=== PATIENT | female | born 1990 | race Caucasian/White ===

== ENCOUNTER 2018-05-10 13:01 | Inpatient (IN) | payer BC ==
[~2018-05-10 13:01] MED LIST: Bupivacaine/Epinephrine 0.25% 30 ML VIAL ONE
[2018-05-10 14:41] VITALS: BMI 30.4
[2018-05-10 14:45] LABS: Amnisure Internal Control QC ACCEPTABLE (ACCEPTABLE); Amnisure Test RUPTURE DETECTED (No Rupture)
--- NOTE | 2018-05-10 15:03 | PDOC.LDHP ---
Labor and Delivery H&P Chief complaint: loss of fluid HPI: Patient of Dr Adams, here for SROM at 1300 Patient is a 27 yo at 38 weeks by EDC here for SROM at 1300 and CTX. Last delivery was 18mos ago and had PIH then. No SXS of MARTÍNEZ, or visual changes, no RUQ pain. Review of Systems: Complete ROS performed and as per HPI Current gestational age (weeks): 38 Due date: 05/23/18 Dating criteria: last menstrual period Grav: 2 Para: 1 OB History Details: X 1 Current complications: none Abnormal US findings: No Current medications: pre-torin vitamins Previous surgical history: none Allergies/Adverse Reactions: Allergies Allergy/AdvReac Type Severity Reaction Status Date / Time No Known Drug Allergies Allergy Verified 05/10/18 14:41 - Physical Exam Abnormal vital signs: 140/90s X 2 General: NAD Heart: RRR Lungs: CTAB Abdomen: gravid Extremeties: no edema FHT: category 1 Cody contractions every: Every 5 minutes - Vaginal Exam cm dilated: 3 Effacement: 75% Station: -1 - Assessment Early labor at term, GBS pos...admit. Dr adams currently out. - Plan Plan: admit to L&D, labor augmentation if indicated, GBS antibiotic prophylaxis , informed consent obtained, anesthesia consult for pain management (Last delivery, she required atropine for "code green" after epidural placement. May have been inadverent intrascculare injection vs other)
[2018-05-10] MEDS ORDERED: Lidocaine 1% (PF) 30 ML VIAL SC PRN (15:07)
[2018-05-10] MEDS ORDERED: Ibuprofen 800 MG TAB PO PRN (15:07)
[2018-05-10] MEDS ORDERED: NS / Oxytocin 40 units/1000ml 1,000 ML IV PRN (15:07)
[2018-05-10] MEDS ORDERED: Butorphanol Tartrate 1 MG/ML VIAL SLOW IVP PRN (15:07)
[2018-05-10] MEDS ORDERED: Promethazine HCl 25 MG/ML VIAL IM PRN (15:07)
[2018-05-10] MEDS ORDERED: HYDROcodone/Acetaminophen 5/325 mg Tablet PO PRN ×2 (15:07)
[2018-05-10] MEDS ORDERED: Ondansetron HCl/PF 4 MG/2 ML Vial IVP PRN (15:07)
[2018-05-10] MEDS ORDERED: Penicillin G Potassium 5 MILL.UNITS in Sodium Chloride 0.9% 100 ML IVPB SCH (15:15)
[2018-05-10] MEDS: Lactated Ringer's 1,000 ML IV SCH (15:30)
[2018-05-10] MEDS ORDERED: Bupivacaine 0.5% 20 ML, fentaNYL Citrate/PF 400 MCG in Sodium Chloride 0.9% 72 ML EPIDURAL SCH (15:45)
[2018-05-10] MEDS ORDERED: DISCONTINUE ALL PREVIOUS NARCOTICS FS SCH (15:45)
[2018-05-10 15:56] LABS: Hemoglobin 12.3 g/dL (12.0-16.0); Mean Corpuscular HGB CONC 33.1 g/dL (32.0-36.0); Mean Corpuscular Hemoglobin 28.9 pg (27.0-31.0); Mean Corpuscular Volume 87.3 fL (78.0-98.0); Mean Platelet Volume 8.6 fL (7.4-10.4); Platelet Count 162 thou/uL (130-400); RBC Distribution Width 11.9 % (11.5-14.5); Red Blood Cell (RBC) Count 4.26 mill/uL (4.20-5.40); White Blood Cell (WBC) Count 6.6 thou/uL (4.8-10.8)
[2018-05-10 16:35] LABS: HBSAg Index 0.17 S/CO (0-0.99); HIV (1/2) Antibody/Antigen Non-Reactive (NonReactive); HIV 1/2 INDEX 0.05 S/CO (<1.00); Hep B Surf Ag Non-Reactive S/CO (NonReactive); Syphilis Antibody Nonreactive (Nonreactive); Syphilis Antibody Index 0.12 S/CO (<1.00 Non-Reactive)
[2018-05-10] MEDS ORDERED: Naloxone HCl 0.4 mg/ml Vial IVP PRN ×2 (16:35)
[2018-05-10] MEDS ORDERED: ePHEDrine/0.9% NaCl/PF SYRINGE 50 mg/10 ml SLOW IVP PRN (16:35)
[2018-05-10] MEDS ORDERED: Lactated Ringer's 500 ML IV PRN (16:35)
[2018-05-10] MEDS ORDERED: Communication Order-Pharmacy FS SCH (16:45)
[2018-05-10] MEDS ORDERED: fentaNYL Citrate/PF 400 MCG, Bupivacaine 0.5% 20 ML in Sodium Chloride 0.9% 72 ML EPIDURAL SCH (16:45)
[2018-05-10] MEDS ORDERED: Penicillin G 2.5 MILL.units 2.5 MILL.UNITS in Premix Bag 1 BAG IVPB SCH (17:00)
--- NOTE | 2018-05-10 17:14 | PDOC.EVN ---
Event Note - Event Note Event Note: Noted BPs as 140/90s...no symptomds. I have ordered a CMP as CBC already in process. No urine protein as already in labor.
[2018-05-10 17:34] LABS: ALT (SGPT) 11 U/L (8-55); AST (SGOT) 16 U/L (5-34); Albumin 3.4 g/dL (3.5-5.0); Alkaline Phosphatase 160 U/L (40-150); Anion Gap 13 mmol/L (10-20); BUN (Urea Nitrogen) 10 mg/dL (7.0-18.7); Bilirubin, Total 0.5 mg/dL (0.2-1.2); Calc. Creatinine Clearance 192 mL/min (70-130); Calcium 8.8 mg/dL (7.8-10.44); Carbon Dioxide 19 mmol/L (22-29); Chloride 109 mmol/L (98-107); Estimated GFR-MDRD Greater than 90; Globulin 2.6 g/dL (2.4-3.5); Glucose 70 mg/dL (70-105); Potassium 3.9 mmol/L (3.5-5.1); Sodium 137 mmol/L (136-145)
--- NOTE | 2018-05-10 19:29 | PDOC.OPDEL ---
OB Operative/Delivery Note Delivery Dr/Surgeon: Doug (Patient's RN) Assist: Marie (Patient's RN) Pre-Delivery Diagnosis: active labor Procedure/Post Delivery Dx: spontaneous vaginal delivery Weeks gestation: 38 Anesthesia: epidural - Findings A - 1 min: 8 - 5 min: 9 (Skin to Skin contact at delivery; delayed cord claping for 30 sections) - Additional Findings/Plan Placenta delivered: spontaneous (Hunt) Repaired Obstetrical Laceration: 2nd degree (Midline lac RX with 2-[address] Estimated blood loss: 400 (EBL) Compilations/Other Findings: NC X 1 delivered through. Baby delivered cephalic with hand by face (compound presentation). 2nd degree lac repaired under SADAF (local-30ml- poured on perineum post repair) No vaginal packs by counts; vaginal sweep done Post delivery plan: routine recovery
[2018-05-10] MEDS ORDERED: diphenhydrAMINE 25 MG CAP PO PRN (19:30)
[2018-05-10] MEDS ORDERED: Varicella virus, LIVE 0.5 ML VIAL SC ONE (19:30)
[2018-05-10] MEDS ORDERED: Benzocaine/Menthol 20-0.5% 60 ML CAN TOP PRN (19:30)
[2018-05-10] MEDS ORDERED: Bisacodyl 10 MG SUPP PR PRN (19:30)
[2018-05-10] MEDS ORDERED: Preparation H Ointment 28 GM TUBE PR PRN (19:30)
[2018-05-10] MEDS ORDERED: NS / Oxytocin 40 units/1000ml 1,000 ML IV SCH (19:30)
[2018-05-10] MEDS ORDERED: Milk Of Magnesia 30 ML UDCUP PO PRN (19:30)
[2018-05-10] MEDS ORDERED: Adacel (T-DAP) 0.5 ML VIAL IM ONE (19:30)
[2018-05-10] MEDS ORDERED: Measles/Mumps/Rubella 10 MCG/0.5 ML VIAL SC ONE (19:30)
[2018-05-10] MEDS ORDERED: Acetaminophen/Codeine 30-300mg Tablet PO PRN ×2 (19:30)
--- NOTE | 2018-05-10 21:01 | PDOC.EVN ---
Event Note - Event Note Event Note: Pre- transport: Patient with noted BPs PP of 140s/90s, no SXS. CMP was normal, as was CBC. We will transfer to floor with Q4 hour BP checks. Consider po labetolol if persistent BPs 150s/90s.
[2018-05-10] MEDS: Ibuprofen 800 MG TAB PO SCH (22:08)
[2018-05-10] MEDS: Docusate Calcium (SURFAK) 240 MG CAP PO SCH (22:08)
[2018-05-11] MEDS: Lactated Ringer's 1,000 ML IV SCH ×3 (02:50→14:11)
[2018-05-11 05:53] LABS: Hemoglobin 11.2 g/dL (12.0-16.0); Mean Corpuscular HGB CONC 33.8 g/dL (32.0-36.0); Mean Corpuscular Hemoglobin 29.7 pg (27.0-31.0); Mean Corpuscular Volume 88.1 fL (78.0-98.0); Mean Platelet Volume 8.3 fL (7.4-10.4); Platelet Count 134 thou/uL (130-400); RBC Distribution Width 11.8 % (11.5-14.5); Red Blood Cell (RBC) Count 3.77 mill/uL (4.20-5.40); White Blood Cell (WBC) Count 9.6 thou/uL (4.8-10.8)
[2018-05-11] MEDS: Ibuprofen 800 MG TAB PO SCH ×3 (06:04→21:17)
--- NOTE | 2018-05-11 06:17 | PDOC.PP ---
Post Progress Note Post Day #: 0 to 1 Subjective: no complaints, 2nd degree lac site doing well. PO intake tolerated: yes Flatus: yes Ambulation: yes Vital Signs (12 hours) Temp Pulse Resp BP Pulse Ox 05/11/18 04:00 98.1 F 60 18 120/70 05/11/18 00:25 98.8 F 61 18 127/78 05/10/18 23:15 98.9 F 59 L 18 135/71 05/10/18 21:40 99.4 F 69 18 138/75 96 Weight Weight 200 lb TMax was 99 last PM around 0. - Physical Examination General: NAD Cardiovascular: no m/r/g Respiratory: clear to auscultation bilaterally Abdominal: + bowel sounds, lochia, no distention Extremities: negative homans (B) Psychiatric: A&Ox3, normal affect Result Diagrams: 05/11/18 05:26 05/10/18 15:30 Additional Labs: Post Labs Blood Type O POSITIVE 05/10/18 15:30 Hep Bs Antigen Non-Reactive S/CO (NonReactive) 05/10/18 15:30 (1) Second degree perineal laceration Code(s): O70.1 - SECOND DEGREE PERINEAL LACERATION DURING DELIVERY Status: Acute (2) Vaginal delivery Code(s): O80 - ENCOUNTER FOR FULL-TERM UNCOMPLICATED DELIVERY Status: Acute - Assessment/Plan PP Day 1 doing well. GBS was positive and recieved 1 dose intrapartum of PCN. Patient desires in house observation today. We will keep today as TMAX was 99 x 1 last PM...uterine fundus nontender. Likely dsch tomorrow AM
[2018-05-11] MEDS: Ferrous Sulfate 325 MG TAB PO SCH ×2 (07:40→14:21)
[2018-05-11] MEDS: Docusate Calcium (SURFAK) 240 MG CAP PO SCH ×2 (09:33→21:17)
[2018-05-11] MEDS: Prenatal Vitamin 1 TAB PO SCH (09:33)
[2018-05-12] MEDS: Lactated Ringer's 1,000 ML IV SCH ×2 (01:09→07:59)
[2018-05-12] MEDS: Ibuprofen 800 MG TAB PO SCH ×2 (05:42→08:00)
[2018-05-12 07:34] VITALS: BP 145/84; TEMP 97.9
[2018-05-12] MEDS: Ferrous Sulfate 325 MG TAB PO SCH (07:59)
[2018-05-12] MEDS: Prenatal Vitamin 1 TAB PO SCH (08:00)
[2018-05-12] MEDS: Docusate Calcium (SURFAK) 240 MG CAP PO SCH (08:00)
--- NOTE | 2018-05-12 10:21 | DIS ---
DATE OF ADMISSION: 05/10/2018 DATE OF DISCHARGE: 05/12/2018 ADMITTING DIAGNOSIS: Early labor. DISCHARGE DIAGNOSIS: Normal delivery. PROCEDURE: Term spontaneous vaginal delivery. CONSULTATIONS: None. HOSPITAL COURSE: The patient is a 27-year-old female followed by Dr. Villalpando during her , wh o presented to Labor and Delivery in early labor. The patient was admitted for augmentation of labor and subsequently had a term spontaneous vaginal delivery. For complete details, please refer to the operative note. Her course has been uncomplicated. Today is day #2. She rep orts that she is tolerating p.o., voiding on her own, having decreased lochia and good pain control. Her post-delivery hemoglobin is 11.2, hematocrit 33.2, platelets 134,000. PHYSICAL EXAMINATION: VITAL SIGNS: Today blood pressure is 145/84, temperature 97.9, pulse of 66, respiratory rate of 20. GENERAL: The patient appears to be in no acute distress. She is alert and oriented, cooperative and pleasant to interact with. HEAD: Normocephalic, atraumatic. ABDOMEN: Soft. Fundus is firm at the umbilicus -2. EXTREMITIES: Nontender with minimal symmetrical edema. The patient will be discharged to home with ibuprofen to be taken as needed for pain control. She dobson s instructions to follow up with Dr. Villalpando in 6 weeks for routine check or sooner if she experiences fever, increasing pain or bleeding.
== END 2018-05-12 11:43 | disposition home or self-care (01) | DRG 775 ==
LOC: L&D/OP 13:01 → L&D 15:31 → 3SW 21:39
PROVIDERS: ADMIT Obstetrics & Gynecology; ATTEND Obstetrics & Gynecology
PROC: 10E0XZZ Delivery of Products of Conception, External Approach (ICD-10-PCS; principal; 2018-05-10)
PROC: 0KQM0ZZ Repair Perineum Muscle, Open Approach (ICD-10-PCS; 2018-05-10)
DX: O99.824 Streptococcus B carrier state complicating childbirth (principal); O69.81X0 Labor and delivery complicated by cord around neck, without compression, not applicable or unspecified; Z3A.38 38 weeks gestation of pregnancy; Z37.0 Single live birth; O70.1 Second degree perineal laceration during delivery
CPT/HCPCS: 51702; 80053; 84112; 85027; 86780; 86850; 86900; 86901; 87340; 87389; 99285; J2001; J2540; J3010; J3490; J7050

== ENCOUNTER 2019-09-25 13:54 | Outpatient (CLI) | payer BC ==
--- NOTE | 2019-09-25 16:26 | RAD ---
RIGHT ANKLE THREE VIEWS: History: Pain. FINDINGS: The ankle mortise is maintained. No acute fracture, dislocation, or bone destruction is seen. IMPRESSION: As above. POS: OFF
== END 2019-09-25 13:55 | disposition home or self-care (01) ==
LOC: BICRAD 13:54
PROVIDERS: ATTEND Family Medicine
DX: M25.571 Pain in right ankle and joints of right foot (principal)

== ENCOUNTER 2020-01-26 09:10 | Outpatient (CLI) | payer BC ==
--- NOTE | 2020-01-26 12:59 | MRI ---
MRI OF THE RIGHT HINDFOOT WITHOUT CONTRAST: INDICATION: A 29-year-old female with a history of numbness in the right foot after a twisting ankle injury in [facility] of 2019. COMPARISON: Radiographs of the right ankle dated 09/25/2019. FINDINGS: There is prominent fluid distention of the FHL tendon sheath. The tendon sheath is distended from th e level of the posterior tibial metaphysis through the level of the tarsal tunnel and beyond to the l evel of the knot of Amrik. There is compression and mass effect on the distal posterior tibial nerve as well as the medial and lateral plantar nerves, particularly on image 19 of series 5 and images 21 and 22 of series 5. There is no overt evidence to suggest intrinsic foot muscular atrophy. Plantar fascia is normal-appearing. The ATFL, PTFL, calcaneofibular, deltoid, and syndesmotic ligaments are intact. No osteochondral defect is evident. Mild fluid is seen surrounding the posterior tibial te ndon at the level just proximal to the tarsal tunnel and to the level of its insertion. Peroneal ten dons appear within normal limits. Extensor tendon is normal-appearing. Achilles tendon is normal-ap pearing. Sinus tarsi has a normal appearance. The visualized aspects of the Lisfranc ligament appea r intact. IMPRESSION: 1. Prominent flexor hallucis longus tenosynovitis and fluid distention of the tendon sheath inducing mass effect on the distal posterior tibial tendon as well as the medial and lateral plantar nerves. There is no evidence to suggest intrinsic foot muscular atrophy. 2. Mild posterior tibialis tenosynovitis. POS: [facility]
== END 2020-01-26 09:11 | disposition home or self-care (01) ==
LOC: BICMRI 09:10
PROVIDERS: ATTEND Orthopaedic Surgery
DX: R20.0 Anesthesia of skin (principal); M65.9 Synovitis and tenosynovitis, unspecified

== ENCOUNTER 2022-02-20 14:24 | Outpatient (CLI) | payer BC | END 2022-02-20 14:25 | disposition home or self-care (01) | LOC: BICRAD 14:24 | PROVIDERS: ATTEND Family Medicine | DX: M25.561 Pain in right knee (principal) ==

== ENCOUNTER 2025-04-27 12:49 | Outpatient (CLI) | payer BC | END 2025-04-27 12:50 | disposition home or self-care (01) | LOC: RAD 12:49 | PROVIDERS: ATTEND Family Medicine | DX: R05.1 Acute cough (principal) | CPT/HCPCS: 71046 ==